=== PATIENT | female | born 1965 | race Caucasian/White ===

== ENCOUNTER 2021-02-10 07:49 | Emergency (ER) | payer MEDICARE, BC ==
[~2021-02-10] VITALS: Ht 170.2 cm; Wt 59.1 kg
[2021-02-10 08:03] VITALS: BP 116/88; PULSE 115; TEMP 97.8
== END 2021-02-10 09:02 | disposition home or self-care (01) ==
LOC: COL.ER 07:49
DX: S20.211A Contusion of right front wall of thorax, initial encounter (principal); Z85.858 Personal history of malignant neoplasm of other endocrine glands; X58.XXXA Exposure to other specified factors, initial encounter